=== PATIENT | male | born 1970 | race Caucasian/White ===

== ENCOUNTER 2017-03-15 19:58 | Emergency (ER) | payer OTHER ==
[2017-03-15] MEDS ORDERED: RX INFO: IV CONTRAST WAS GIVEN 1 EACH MISC MISCELLANE PRN (20:43)
[2017-03-15] MEDS ORDERED: SODIUM CHLORIDE 0.9% 1,000 ML IV STA (20:43)
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
[2017-03-15 21:35] LABS: Basophils # (A) 0.1 k/uL (0-0.2); Basophils % (A) 1 %; CH 34.1; CHCM 34.5; Eosinophils # (A) 0.3 k/uL (0-0.7); Eosinophils % (A) 4 %; HCT 46.5 % (39.0-53.0); HDW 2.52; HGB 15.6 gm/dL (13.0-17.5); Luc # (Auto) 0.16; Luc % (Auto) 2; Lymphocytes # (A) 2.9 k/uL (1.0-4.8); Lymphocytes % (A) 31 %; MCH 33.3 pg (25.0-35.0); MCHC 33.6 g/dL (31.0-37.0); MCV 99.2 fL (80.0-100.0); Mean Platelet Volume 7.7; Monocytes # (A) 0.3 k/uL (0-1.0); Monocytes % (A) 3 %; Neutrophils # (A) 5.8 k/uL (1.3-7.7); Neutrophils % (A) 60 %; RBC 4.69 m/uL (4.30-5.90); RDW 13.8 % (11.5-15.5); WBC 9.6 k/uL (3.8-10.6); WBC (Perox) 9.66
[2017-03-15 21:43] LABS: INR 1.1 (<1.2); Partial Thromboplastin Time 25.5 sec (22.0-30.0)
[2017-03-15 21:52] LABS: ALT 47 U/L (21-72); AST 29 U/L (17-59); Alkaline Phosphatase 56 U/L (38-126); Anion Gap 6 mmol/L; Blood Urea Nitrogen 21 mg/dL (9-20); Calcium 8.9 mg/dL (8.4-10.2); Carbon Dioxide 24 mmol/L (22-30); Chloride 107 mmol/L (98-107); Glucose 102 mg/dL (74-99); Non-African American GFR(MDRD) >60 (>60 ml/min/1.73 sqM); Potassium 4.3 mmol/L (3.5-5.1); Sodium 137 mmol/L (137-145); Total Bilirubin 0.2 mg/dL (0.2-1.3); Total Protein 6.2 g/dL (6.3-8.2)
[2017-03-15 22:11] LABS: Appearance,Urine Clear (Clear); Bilirubin,Urine Negative (Negative); Glucose,Urine (UA) Negative (Negative); Ketones,Urine Negative (Negative); Leukocyte Esterase,Urine Negative (Negative); Nitrite,Urine Negative (Negative); Protein,Urine Negative (Negative); Specific Gravity,Urine 1.024 (1.001-1.035); UA Billing (MACRO vs. MICRO) CHEM; Urobilinogen,Urine <2.0 mg/dL (<2.0)
[2017-03-15 22:21] VITALS: PULSE 70; RESP 16
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
[2017-03-15 23:05] VITALS: BP 125/58; TEMP 97.9
== END 2017-03-15 23:04 | disposition home or self-care (01) ==
LOC: EC 19:58
DX: S06.0X0A Concussion without loss of consciousness, initial encounter (principal); M25.511 Pain in right shoulder; M54.2 Cervicalgia; F31.9 Bipolar disorder, unspecified; F17.200 Nicotine dependence, unspecified, uncomplicated; Z79.899 Other long term (current) drug therapy; Z88.5 Allergy status to narcotic agent; V43.62XA Car passenger injured in collision with other type car in traffic accident, initial encounter
CPT/HCPCS: 36415; 80053; 85025; 85610; 85730; 81003; 72125; 70450; 71260; 74177; 99284; 96360; 96361; Q9967

== ENCOUNTER 2017-04-13 07:23 | Emergency (ER) | payer OTHER ==
[2017-04-13 07:28] VITALS: RESP 18; TEMP 98.2
[2017-04-13] MEDS ORDERED: SODIUM CHLORIDE 0.9% 1,000 ML IV STA (07:58)
[2017-04-13] MEDS ORDERED: ONDANSETRON 4 MG/2 ML VIAL IVP STA (07:58)
--- NOTE | 2017-04-13 08:22 | ED ---
General Adult HPI - General Chief complaint: Back Pain/Injury Stated complaint: vomiting, pop in back Time Seen by Provider: 04/13/17 07:51 Source: patient, RN notes reviewed Mode of arrival: ambulatory Limitations: no limitations - History of Present Illness Initial comments: 46 yo male presents for evaluation of nausea and vomiting. Patient 4 episodes of vomiting this morning. He did eat a hot dog which was left over from yesterday. He believes his symptoms are related to this. He also had one episode of diarrhea. One episode of vomiting felt a pop in his back, had pain in his back radiating to his right leg. Patient does have known history of sciatica and states this is typical pain for him. No difficulty with ambulation. Normal bowel or bladder symptoms. Pain is mostly resolved at the time my evaluation. Patient denies fever or chills. Denies chest pain or shortness of breath. - Related Data Home Medications Medication Instructions Recorded Confirmed Albuterol Inhaler [Ventolin Hfa 2 puff INHALATION RT-Q6H PRN 06/16/16 04/13/17 Inhaler] Ibuprofen [Motrin] 800 mg PO TID PRN 03/15/17 04/13/17 Lisinopril [Zestril] 20 mg PO DAILY 03/15/17 04/13/17 Sertraline [Zoloft] 50 mg PO HS 03/15/17 04/13/17 Allergies Allergy/AdvReac Type Severity Reaction Status Date / Time morphine Allergy Anaphylaxis Verified 04/13/17 07:41 Review of Systems ROS Statement: Those systems with pertinent positive or pertinent negative responses have been documented in the HPI. ROS Other: All systems not noted in ROS Statement are negative. Past Medical History Past Medical History: Asthma, Hypertension, Mitral Valve Prolapse (MVP) Additional Past Medical History / Comment(s): migraines, back pain History of Any Multi-Drug Resistant Organisms: None Reported Past Surgical History: Appendectomy, Tonsillectomy Past Psychological History: Bipolar, Depression Smoking Status: Current every day smoker Past Alcohol Use History: None Reported Past Drug Use History: None Reported - Past Family History Mother Family Medical History: Diabetes Mellitus General Exam Limitations: no limitations General appearance: alert, in no apparent distress Head exam: Present: atraumatic, normocephalic Eye exam: Present: normal appearance, PERRL ENT exam: Present: normal exam, mucous membranes dry Neck exam: Present: normal inspection. Absent: tenderness, meningismus Respiratory exam: Present: normal lung sounds bilaterally. Absent: respiratory distress Cardiovascular Exam: Present: regular rate, normal rhythm GI/Abdominal exam: Present: soft. Absent: distended, tenderness, guarding Extremities exam: Present: normal inspection, full ROM, normal capillary refill. Absent: tenderness, pedal edema Back exam: Present: normal inspection, full ROM Neurological exam: Present: alert, oriented X3, CN II-XII intact. Absent: motor sensory deficit Psychiatric exam: Present: normal affect, normal mood Skin exam: Present: warm, dry, intact. Absent: cyanosis, diaphoretic Course Vital Signs 04/13/17 07:26 Temperature 98.2 F Pulse Rate 75 Respiratory 18 Rate Blood Pressure 132/75 O2 Sat by Pulse 100 Oximetry - Reevaluation(s) Reevaluation #1: 04/13/17 09:12 On reevaluation the patient is feeling better, no nausea vomiting while in the emergency department Medical Decision Making - Medical Decision Making 46 yo male presenting with 4 episodes of nausea and vomiting as well as one episode of diarrhea, patient's symptoms began after eating a day-old hotdog. Patient did have some back pain, however this was typical of his sciatica. Pain radiated down the right leg. Patient has no focal neurological findings. Abdomen soft nontender nondistended. He appears well-hydrated on examination. Strength in the lower extremities is 5 out 5 bilaterally, no saddle anesthesia, normal gait. Laboratory studies including CBC and CMP are unremarkable, normal electrolyte. X-ray of the abdomen is negative for obstruction or free air. On reevaluation patient is feeling better. No vomiting while in the emergency department. Diagnosis: Nausea vomiting diarrhea - Lab Data Result diagrams: 04/13/17 08:30 04/13/17 08:30 Lab Results 04/13/17 04/13/17 Range/Units 08:30 08:30 WBC 8.5 (3.8-10.6) k/uL RBC 4.97 (4.30-5.90) m/uL Hgb 16.3 (13.0-17.5) gm/dL Hct 47.0 (39.0-53.0) % MCV 94.6 (80.0-100.0) fL MCH 32.7 (25.0-35.0) pg MCHC 34.6 (31.0-37.0) g/dL RDW 13.6 (11.5-15.5) % Plt Count 281 (150-450) k/uL Neutrophils % 64 % Lymphocytes % 25 % Monocytes % 6 % Eosinophils % 3 % Basophils % 0 % Neutrophils # 5.5 (1.3-7.7) k/uL Lymphocytes # 2.1 (1.0-4.8) k/uL Monocytes # 0.5 (0-1.0) k/uL Eosinophils # 0.2 (0-0.7) k/uL Basophils # 0.0 (0-0.2) k/uL Sodium 141 (137-145) mmol/L Potassium 3.8 (3.5-5.1) mmol/L Chloride 107 (98-107) mmol/L Carbon Dioxide 26 (22-30) mmol/L Anion Gap 8 mmol/L BUN 19 (9-20) mg/dL Creatinine 0.87 (0.66-1.25) mg/dL Est GFR (MDRD) Af Amer >60 (>60 ml/min/1.73 sqM) Est GFR (MDRD) Non-Af >60 (>60 ml/min/1.73 sqM) Glucose 100 H (74-99) mg/dL Calcium 9.2 (8.4-10.2) mg/dL Total Bilirubin 0.5 (0.2-1.3) mg/dL AST 31 (17-59) U/L ALT 38 (21-72) U/L Alkaline Phosphatase 50 (38-126) U/L Total Protein 6.2 L (6.3-8.2) g/dL Albumin 3.8 (3.5-5.0) g/dL Amylase 44 (30-110) U/L Lipase 113 (23-300) U/L Disposition Clinical Impression: Nausea vomiting and diarrhea Disposition: HOME SELF-CARE Condition: Good Instructions: Chronic Back Pain (ED), Acute Nausea and Vomiting (ED) Referrals: Fartun Garrido MD [Primary Care Provider] - 1-2 days Time of Disposition: 09:14
--- NOTE | 2017-04-13 08:31 | XR ---
EXAMINATION TYPE: XR KUB DATE OF EXAM: 04/13/2017 COMPARISON: NONE HISTORY: Pain TECHNIQUE: Single supine KUB image of the abdomen is obtained FINDINGS: Small bowel demonstrates no evidence for dilatation or air fluid levels. Gas and fecal material is seen in non-distended colon. No convincing evidence for pneumoperitoneum. No unusual calcifications. The lung bases are clear. The osseous structures are intact. IMPRESSION: 1. Overall nonobstructive bowel gas pattern.
[2017-04-13 08:53] LABS: Basophils % (A) 0 %; CH 34.1; CHCM 36.2; Eosinophils # (A) 0.2 k/uL (0-0.7); Eosinophils % (A) 3 %; HDW 2.51; HGB 16.3 gm/dL (13.0-17.5); Luc # (Auto) 0.18; Luc % (Auto) 2; Lymphocytes # (A) 2.1 k/uL (1.0-4.8); Lymphocytes % (A) 25 %; MCH 32.7 pg (25.0-35.0); MCHC 34.6 g/dL (31.0-37.0); MCV 94.6 fL (80.0-100.0); Mean Platelet Volume 7.5; Monocytes # (A) 0.5 k/uL (0-1.0); Monocytes % (A) 6 %; Neutrophils # (A) 5.5 k/uL (1.3-7.7); Neutrophils % (A) 64 %; RBC 4.97 m/uL (4.30-5.90); RDW 13.6 % (11.5-15.5); WBC 8.5 k/uL (3.8-10.6); WBC (Perox) 8.43
[2017-04-13 09:01] LABS: ALT 38 U/L (21-72); AST 31 U/L (17-59); Alkaline Phosphatase 50 U/L (38-126); Amylase 44 U/L (30-110); Anion Gap 8 mmol/L; Blood Urea Nitrogen 19 mg/dL (9-20); Calcium 9.2 mg/dL (8.4-10.2); Carbon Dioxide 26 mmol/L (22-30); Chloride 107 mmol/L (98-107); Glucose 100 mg/dL (74-99); Non-African American GFR(MDRD) >60 (>60 ml/min/1.73 sqM); Potassium 3.8 mmol/L (3.5-5.1); Sodium 141 mmol/L (137-145); Total Bilirubin 0.5 mg/dL (0.2-1.3); Total Protein 6.2 g/dL (6.3-8.2)
[2017-04-13 09:48] VITALS: BP 133/79; PULSE 79
== END 2017-04-13 09:28 | disposition home or self-care (01) ==
LOC: EC 07:23
DX: R11.2 Nausea with vomiting, unspecified (principal); R19.7 Diarrhea, unspecified; M54.9 Dorsalgia, unspecified; I10 Essential (primary) hypertension; M54.30 Sciatica, unspecified side; F32.9 Major depressive disorder, single episode, unspecified; F17.200 Nicotine dependence, unspecified, uncomplicated; Z79.899 Other long term (current) drug therapy; Z88.5 Allergy status to narcotic agent
CPT/HCPCS: 36415; 80053; 82150; 83690; 85025; 74000; 99283; 96374; 96361; J2405

== ENCOUNTER 2017-04-16 10:57 | Emergency (ER) | payer OTHER ==
[2017-04-16] MEDS ORDERED: SODIUM CHLORIDE 0.9% 1,000 ML IV STA ×2 (11:13→12:47)
--- NOTE | 2017-04-16 11:17 | ED ---
General Adult HPI - General Chief complaint: Syncope Stated complaint: syncope Time Seen by Provider: 04/16/17 11:07 Source: patient, RN notes reviewed Mode of arrival: wheelchair Limitations: no limitations - History of Present Illness Initial comments: Patient is a pleasant 46-year-old male presenting to the emergency department following syncopal episode. Episode occurred just prior to arrival. Patient states he was walking down the road when he suddenly felt tingly and then when out. Patient remembers somebody waking him up. Patient believes she had the side of his head. Patient has only mild discomfort on the left side of his head with touch. No neck or back pain. No chest pain or dyspnea. No abdominal pain. No history of similar symptoms previously. Patient did do a line of cocaine last night because his brother came over to visit. Patient states he does not normally do a lot of cocaine. Patient denies any confusion or weakness. - Related Data Home Medications Medication Instructions Recorded Confirmed Albuterol Inhaler [Ventolin Hfa 2 puff INHALATION RT-Q6H PRN 06/16/16 04/16/17 Inhaler] Ibuprofen [Motrin] 800 mg PO TID PRN 03/15/17 04/16/17 Lisinopril [Zestril] 20 mg PO DAILY 03/15/17 04/16/17 Sertraline [Zoloft] 50 mg PO HS 03/15/17 04/16/17 Atenolol [Tenormin] 25 mg PO DAILY 04/16/17 04/16/17 oxyCODONE-APAP 10-325MG [Percocet 1 tab PO TID PRN 04/16/17 04/16/17 10-325 mg] Previous Rx's Medication Instructions Recorded Amoxicillin 500 mg PO Q8H #30 capsule 04/16/17 Allergies Allergy/AdvReac Type Severity Reaction Status Date / Time morphine Allergy Anaphylaxis Verified 04/16/17 12:34 Review of Systems ROS Statement: Those systems with pertinent positive or pertinent negative responses have been documented in the HPI. ROS Other: All systems not noted in ROS Statement are negative. Constitutional: Denies: fever Eyes: Denies: eye pain ENT: Denies: ear pain Respiratory: Denies: cough, dyspnea Cardiovascular: Denies: chest pain, palpitations Endocrine: Denies: fatigue Gastrointestinal: Denies: abdominal pain Genitourinary: Denies: dysuria Musculoskeletal: Denies: back pain Skin: Denies: rash Neurological: Denies: weakness, numbness, paresthesias, confusion, abnormal gait , vertigo Past Medical History Past Medical History: Asthma, Hypertension, Mitral Valve Prolapse (MVP) Additional Past Medical History / Comment(s): migraines, back pain History of Any Multi-Drug Resistant Organisms: None Reported Past Surgical History: Appendectomy, Tonsillectomy Past Psychological History: Bipolar, Depression Smoking Status: Current every day smoker Past Alcohol Use History: Occasional Past Drug Use History: Cocaine - Past Family History Mother Family Medical History: Diabetes Mellitus General Exam Limitations: no limitations General appearance: alert, in no apparent distress Head exam: Present: normocephalic, other (Tenderness left parietal region to palpation. No significant swelling.) Eye exam: Present: normal appearance, PERRL, EOMI. Absent: nystagmus ENT exam: Present: normal oropharynx Neck exam: Present: normal inspection. Absent: tenderness Respiratory exam: Present: normal lung sounds bilaterally Cardiovascular Exam: Present: regular rate, normal rhythm Expanded Peripheral pulses: 2+: Radial (R), Radial (L), Dorsalis Pedis (R), Dorsalis Pedis (L) GI/Abdominal exam: Present: soft. Absent: tenderness Extremities exam: Present: normal inspection, full ROM. Absent: tenderness, pedal edema, calf tenderness Neurological exam: Present: alert, oriented X3, CN II-XII intact. Absent: motor sensory deficit Expanded Patient oriented to: Present: person, place, time Speech: Present: fluid speech Cranial nerves: EOM's Intact: Normal, Facial Sensation: Normal Sensory exam: Upper Extremity Light Touch: Normal, Lower Extremity Light Touch: Normal Motor strength exam: RUE: 5, LUE: 5, RLE: 5, LLE: 5 Eye Response: (4) open spontaneously Motor Response: (6) obeys commands Verbal Response: (5) oriented Psychiatric exam: Present: normal affect, normal mood Skin exam: Present: normal color Course Vital Signs 04/16/17 04/16/17 04/16/17 11:01 12:51 13:12 Temperature 96.9 F L Pulse Rate 89 70 62 Respiratory 18 16 18 Rate Blood Pressure 99/55 121/66 119/69 O2 Sat by Pulse 99 98 98 Oximetry - Reevaluation(s) Reevaluation #1: 04/16/17 11:15 Patient counseled to discontinue cocaine use. EKG Findings - EKG Comments: EKG Findings:: Sinus rhythm at 71. Short DE 108. QRS 90. QT 378. QTC 410. Normal axis. Right atrial enlargement. No acute ST change. Medical Decision Making - Medical Decision Making Patient reevaluated and resting comfortably in bed. Patient updated on results and need for close follow-up. did show up demanding to know results on drug screen. This information was not provided directly to her for patient confidentiality. Patient does admit to having sinus problems and will be prescribed antibiotics. - Lab Data Result diagrams: 04/16/17 11:18 04/16/17 11:18 Lab Results 04/16/17 04/16/17 04/16/17 Range/Units 11:16 11:18 11:18 WBC 19.5 H (3.8-10.6) k/uL RBC 5.42 (4.30-5.90) m/uL Hgb 18.3 H (13.0-17.5) gm/dL Hct 51.7 (39.0-53.0) % MCV 95.5 (80.0-100.0) fL MCH 33.8 (25.0-35.0) pg MCHC 35.3 (31.0-37.0) g/dL RDW 12.4 (11.5-15.5) % Plt Count 331 (150-450) k/uL Neutrophils % 79 % Lymphocytes % 14 % Monocytes % 4 % Eosinophils % 1 % Basophils % 0 % Neutrophils # 15.5 H (1.3-7.7) k/uL Lymphocytes # 2.7 (1.0-4.8) k/uL Monocytes # 0.9 (0-1.0) k/uL Eosinophils # 0.3 (0-0.7) k/uL Basophils # 0.1 (0-0.2) k/uL PT (9.0-12.0) sec INR (<1.2) APTT (22.0-30.0) sec D-Dimer (<0.60) mg/L FEU Sodium (137-145) mmol/L Potassium (3.5-5.1) mmol/L Chloride (98-107) mmol/L Carbon Dioxide (22-30) mmol/L Anion Gap mmol/L BUN (9-20) mg/dL Creatinine (0.66-1.25) mg/dL Est GFR (MDRD) Af Amer (>60 ml/min/1.73 sqM) Est GFR (MDRD) Non-Af (>60 ml/min/1.73 sqM) Glucose (74-99) mg/dL POC Glucose (mg/dL) 97 (75-99) mg/dL POC Glu Manager Of Radiology ID Haleigh Leonard Calcium (8.4-10.2) mg/dL Magnesium (1.6-2.3) mg/dL Total Bilirubin (0.2-1.3) mg/dL AST (17-59) U/L ALT (21-72) U/L Alkaline Phosphatase (38-126) U/L Total Creatine Kinase 216 H (55-170) U/L CK-MB (CK-2) 3.8 H* (0.0-2.4) ng/mL CK-MB (CK-2) Rel Index 1.8 Troponin I <0.012 (0.000-0.034) ng/mL Total Protein (6.3-8.2) g/dL Albumin (3.5-5.0) g/dL Urine Color Urine Appearance (Clear) Urine pH (5.0-8.0) Ur Specific Laughlin (1.001-1.035) Urine Protein (Negative) Urine Glucose (UA) (Negative) Urine Ketones (Negative) Urine Blood (Negative) Urine Nitrite (Negative) Urine Bilirubin (Negative) Urine Urobilinogen (<2.0) mg/dL Ur Leukocyte Esterase (Negative) Urine RBC (0-5) /hpf Urine WBC (0-5) /hpf Ur Squamous Epith Cells (0-4) /hpf Hyaline Casts (0-2) /lpf Granular Casts (0) /lpf Urine Mucus (None) /hpf Urine Opiates Screen (NotDetected) Ur Oxycodone Screen (NotDetected) Urine Methadone Screen (NotDetected) Ur Propoxyphene Screen (NotDetected) Ur Barbiturates Screen (NotDetected) U Tricyclic Antidepress (NotDetected) Ur Phencyclidine Scrn (NotDetected) Ur Amphetamines Screen (NotDetected) U Methamphetamines Scrn (NotDetected) U Benzodiazepines Scrn (NotDetected) Urine Cocaine Screen (NotDetected) U Marijuana (THC) Screen (NotDetected) 04/16/17 04/16/17 04/16/17 Range/Units 11:18 11:18 12:48 WBC (3.8-10.6) k/uL RBC (4.30-5.90) m/uL Hgb (13.0-17.5) gm/dL Hct (39.0-53.0) % MCV (80.0-100.0) fL MCH (25.0-35.0) pg MCHC (31.0-37.0) g/dL RDW (11.5-15.5) % Plt Count (150-450) k/uL Neutrophils % % Lymphocytes % % Monocytes % % Eosinophils % % Basophils % % Neutrophils # (1.3-7.7) k/uL Lymphocytes # (1.0-4.8) k/uL Monocytes # (0-1.0) k/uL Eosinophils # (0-0.7) k/uL Basophils # (0-0.2) k/uL PT 10.9 (9.0-12.0) sec INR 1.1 (<1.2) APTT 24.6 (22.0-30.0) sec D-Dimer 1.36 H (<0.60) mg/L FEU Sodium 140 (137-145) mmol/L Potassium 4.9 (3.5-5.1) mmol/L Chloride 110 H (98-107) mmol/L Carbon Dioxide 20 L (22-30) mmol/L Anion Gap 10 mmol/L BUN 20 (9-20) mg/dL Creatinine 1.50 H (0.66-1.25) mg/dL Est GFR (MDRD) Af Amer >60 (>60 ml/min/1.73 sqM) Est GFR (MDRD) Non-Af 50 (>60 ml/min/1.73 sqM) Glucose 86 (74-99) mg/dL POC Glucose (mg/dL) (75-99) mg/dL POC Glu Manager Of Radiology ID Calcium 10.1 (8.4-10.2) mg/dL Magnesium 1.9 (1.6-2.3) mg/dL Total Bilirubin 1.1 (0.2-1.3) mg/dL AST 42 (17-59) U/L ALT 44 (21-72) U/L Alkaline Phosphatase 67 (38-126) U/L Total Creatine Kinase (55-170) U/L CK-MB (CK-2) (0.0-2.4) ng/mL CK-MB (CK-2) Rel Index Troponin I (0.000-0.034) ng/mL Total Protein 7.4 (6.3-8.2) g/dL Albumin 4.5 (3.5-5.0) g/dL Urine Color Yellow Urine Appearance Clear (Clear) Urine pH 5.5 (5.0-8.0) Ur Specific Laughlin 1.023 (1.001-1.035) Urine Protein 1+ H (Negative) Urine Glucose (UA) Negative (Negative) Urine Ketones 1+ H (Negative) Urine Blood Negative (Negative) Urine Nitrite Negative (Negative) Urine Bilirubin Negative (Negative) Urine Urobilinogen <2.0 (<2.0) mg/dL Ur Leukocyte Esterase Negative (Negative) Urine RBC 1 (0-5) /hpf Urine WBC 4 (0-5) /hpf Ur Squamous Epith Cells <1 (0-4) /hpf Hyaline Casts 40 H (0-2) /lpf Granular Casts 13 (0) /lpf Urine Mucus Occasional H (None) /hpf Urine Opiates Screen Not Detected (NotDetected) Ur Oxycodone Screen Not Detected (NotDetected) Urine Methadone Screen Not Detected (NotDetected) Ur Propoxyphene Screen Not Detected (NotDetected) Ur Barbiturates Screen Not Detected (NotDetected) U Tricyclic Antidepress Not Detected (NotDetected) Ur Phencyclidine Scrn Not Detected (NotDetected) Ur Amphetamines Screen Not Detected (NotDetected) U Methamphetamines Scrn Not Detected (NotDetected) U Benzodiazepines Scrn Not Detected (NotDetected) Urine Cocaine Screen Detected H (NotDetected) U Marijuana (THC) Screen Not Detected (NotDetected) - Radiology Data Radiology results: report reviewed (Computed tomography scan of the chest negative for pulmonary embolism.), image reviewed (Chest x-ray shows no acute process. Computed tomography scan of the brain shows no acute process. Sinusitis.) Disposition Clinical Impression: Syncope, Sinusitis Disposition: HOME SELF-CARE Condition: Stable Instructions: Syncope (ED), Sinusitis (ED) Additional Instructions: Please follow-up with primary care physician in the next day or 2 for recheck. Avoid use of any illegal substances. Saline nasal spray as needed. Return for chest pain, difficulty breathing, headache, confusion, worsening symptoms, weakness, or other concerns. Prescriptions: Amoxicillin 500 mg PO Q8H #30 capsule Referrals: Fartun Garrido MD [Primary Care Provider] - 1-2 days Time of Disposition: 14:11
[2017-04-16 11:34] LABS: Basophils # (A) 0.1 k/uL (0-0.2); Basophils % (A) 0 %; CH 33.1; CHCM 34.8; Eosinophils # (A) 0.3 k/uL (0-0.7); Eosinophils % (A) 1 %; HCT 51.7 % (39.0-53.0); HGB 18.3 gm/dL (13.0-17.5); Luc # (Auto) 0.19; Luc % (Auto) 1; Lymphocytes # (A) 2.7 k/uL (1.0-4.8); Lymphocytes % (A) 14 %; MCH 33.8 pg (25.0-35.0); MCHC 35.3 g/dL (31.0-37.0); MCV 95.5 fL (80.0-100.0); Mean Platelet Volume 7.2; Monocytes # (A) 0.9 k/uL (0-1.0); Monocytes % (A) 4 %; Neutrophils # (A) 15.5 k/uL (1.3-7.7); Neutrophils % (A) 79 %; RBC 5.42 m/uL (4.30-5.90); RDW 12.4 % (11.5-15.5); WBC 19.5 k/uL (3.8-10.6); WBC (Perox) 19.88
[2017-04-16 11:46] LABS: ALT 44 U/L (21-72); AST 42 U/L (17-59); Alkaline Phosphatase 67 U/L (38-126); Anion Gap 10 mmol/L; Blood Urea Nitrogen 20 mg/dL (9-20); Calcium 10.1 mg/dL (8.4-10.2); Carbon Dioxide 20 mmol/L (22-30); Chloride 110 mmol/L (98-107); Glucose 86 mg/dL (74-99); Magnesium 1.9 mg/dL (1.6-2.3); Non-African American GFR(MDRD) 50 (>60 ml/min/1.73 sqM); Potassium 4.9 mmol/L (3.5-5.1); Sodium 140 mmol/L (137-145); Total Bilirubin 1.1 mg/dL (0.2-1.3); Total Protein 7.4 g/dL (6.3-8.2)
[2017-04-16 11:46] LABS: Glucose,Whole Blood 97 mg/dL (75-99)
--- NOTE | 2017-04-16 11:50 | CT ---
EXAMINATION TYPE: CT brain wo con DATE OF EXAM: 04/16/2017 COMPARISON: Previous study dated 03/15/2017 HISTORY: Syncope CT DLP: 963.6 mGycm Automated exposure control for dose reduction was used. FINDINGS: Central structures are midline. There is no evidence of hydrocephalus. No acute focal lesion, mass ef fect or midline shift is seen. I do not see evidence of intracranial blood. There is an air-fluid level in the left maxillary sinus. IMPRESSION: 1. NO ACUTE INTRACRANIAL ABNORMALITY. 2. ACUTE, LEFT MAXILLARY SINUSITIS.
[2017-04-16 11:58] LABS: Creatine Kinase 216 U/L (55-170); INR 1.1 (<1.2); Partial Thromboplastin Time 24.6 sec (22.0-30.0); Prothrombin Time 10.9 sec (9.0-12.0)
[2017-04-16 12:10] LABS: Troponin I <0.012 ng/mL (0.000-0.034)
[2017-04-16 12:24] LABS: Creatine Kinase MB 3.8 ng/mL (0.0-2.4)
--- NOTE | 2017-04-16 12:41 | XR ---
EXAMINATION TYPE: XR chest 2V DATE OF EXAM ORDERED: 04/16/2017 HISTORY: syncope. REFERENCE: Previous study dated 06/16/2016. FINDINGS: The lungs are clear. Pleural spaces are clear. Heart size is normal. IMPRESSION: NORMAL CHEST.
[2017-04-16] MEDS ORDERED: RX INFO: IV CONTRAST WAS GIVEN 1 EACH MISC MISCELLANE PRN (12:47)
[2017-04-16 13:18] LABS: Appearance,Urine Clear (Clear); Bilirubin,Urine Negative (Negative); Glucose,Urine (UA) Negative (Negative); Granular Casts,Urine 13 /lpf (0); Ketones,Urine 1+ (Negative); Leukocyte Esterase,Urine Negative (Negative); Mucus,Urine Occasional /hpf; Nitrite,Urine Negative (Negative); PH, Urine 5.5 (5.0-8.0); Particle Count 3742; Protein,Urine 1+ (Negative); RBC,Urine 1 /hpf (0-5); Specific Gravity,Urine 1.023 (1.001-1.035); Squamous Epithelial Cell,Urine <1 /hpf (0-4); UA Billing (MACRO vs. MICRO) MICRO; Urobilinogen,Urine <2.0 mg/dL (<2.0); WBC,Urine 4 /hpf (0-5)
--- NOTE | 2017-04-16 13:57 | CT ---
EXAMINATION TYPE: CT angio chest DATE OF EXAM: 04/16/2017 1:35 PM COMPARISON: Previous study dated 03/15/2017 HISTORY: Syncope, elevated d-dimer CT DLP: 158.3 mGycm Automated exposure control for dose reduction was used. CONTRAST: CTA scan of the thorax is performed with IV Contrast, patient injected with 80 mL of Visipaque 320, p ulmonary embolism protocol. . FINDINGS: There is minimal dependent atelectasis in the dependent portions of the lungs. No parenchym al lesions are seen. There is no significant axillary, mediastinal or hilar adenopathy. There is no evidence of pulmonary embolus. The aorta is normal in caliber. There is no pleural or pericardial fluid. The heart is not enlarged. Visualized portions of the upper abdomen are unremarkable. No bony destructive lesion is seen. IMPRESSION: THIS EXAMINATION IS NEGATIVE FOR PULMONARY EMBOLUS.
[2017-04-16 14:41] VITALS: BP 118/79; PULSE 74; RESP 17; TEMP 97.7
== END 2017-04-16 14:50 | disposition home or self-care (01) ==
LOC: EC 10:57
DX: J01.00 Acute maxillary sinusitis, unspecified (principal); R55 Syncope and collapse; I10 Essential (primary) hypertension; F32.9 Major depressive disorder, single episode, unspecified; F17.200 Nicotine dependence, unspecified, uncomplicated; Z88.5 Allergy status to narcotic agent; Z79.899 Other long term (current) drug therapy
CPT/HCPCS: 99284; 96360; 96361 ×2; 36415; 93005; 85379; 80053; 82550; 82553; 83735; 84484; 85025; 85610; 85730; 81001; 80306; 71020; 70450; 71275; Q9967

== ENCOUNTER 2017-04-29 10:35 | Observation (INO) | payer OTHER ==
[2017-04-29] MEDS ORDERED: ASPIRIN 81 MG PO STA (10:49)
[2017-04-29] MEDS ORDERED: NITROGLYCERIN OINT 1 INCH/GM PACKET TOPICAL STA (10:49)
--- NOTE | 2017-04-29 10:52 | ED ---
General Adult HPI - General Chief complaint: Chest Pain Stated complaint: Chest Pain Time Seen by Provider: 04/29/17 10:35 Source: patient, EMS, RN notes reviewed Mode of arrival: EMS Limitations: no limitations - History of Present Illness Initial comments: This is a 46-year-old male who presents emergency Department with a past medical history significant for high blood pressure and a long-standing smoking history. Patient also states he has a positive family history for heart disease. Patient denies any recent fever or chills. Patient states he does cough up sputum on a regular basis. Patient states this is ongoing for quite a while. Patient also states he does cocaine. Patient denies any abdominal pain. Patient does state when he had the chest pain earlier it was a pressure sensation and it radiated straight to his back. Patient states she was sweating at the time and he was nauseated. Patient denies any lightheadedness or dizziness. But he does state that a few weeks ago he did pass out on a rough when he was straining himself while alex. Patient states she was seen at the Hospital at that time. - Related Data Home Medications Medication Instructions Recorded Confirmed Albuterol Inhaler [Ventolin Hfa 2 puff INHALATION RT-Q6H PRN 06/16/16 04/29/17 Inhaler] Ibuprofen [Motrin] 800 mg PO TID PRN 03/15/17 04/29/17 Lisinopril [Zestril] 20 mg PO DAILY 03/15/17 04/29/17 Sertraline [Zoloft] 50 mg PO HS 03/15/17 04/29/17 Atenolol [Tenormin] 25 mg PO DAILY 04/16/17 04/29/17 oxyCODONE-APAP 10-325MG [Percocet 1 tab PO TID PRN 04/16/17 04/29/17 10-325 mg] Allergies Allergy/AdvReac Type Severity Reaction Status Date / Time morphine Allergy Anaphylaxis Verified 04/29/17 10:51 Review of Systems ROS Statement: Those systems with pertinent positive or pertinent negative responses have been documented in the HPI. ROS Other: All systems not noted in ROS Statement are negative. Past Medical History Past Medical History: Asthma, Hypertension, Mitral Valve Prolapse (MVP) Additional Past Medical History / Comment(s): migraines, back pain History of Any Multi-Drug Resistant Organisms: None Reported Past Surgical History: Appendectomy, Tonsillectomy Past Psychological History: Bipolar, Depression Smoking Status: Current every day smoker Past Alcohol Use History: Occasional Past Drug Use History: Cocaine - Past Family History Mother Family Medical History: Diabetes Mellitus General Exam - General Exam Comments Initial Comments: GENERAL: Patient is well-developed and well-nourished. Patient is nontoxic and well- hydrated and is in no acute distress. ENT: Neck is soft and supple. No significant lymphadenopathy is noted. Oropharynx is clear. Moist mucous membranes. Neck has full range of motion without eliciting any pain. EYES: The sclera were anicteric and conjunctiva were pink and moist. Extraocular movements were intact and pupils were equal round and reactive to light. Eyelids were unremarkable. PULMONARY: Unlabored respirations. Good breath sounds bilaterally. Diminished breath sounds CARDIOVASCULAR: There is a regular rate and rhythm without any murmurs gallops or rubs. ABDOMEN: Soft and nontender with normal bowel sounds. No palpable organomegaly was noted. There is no palpable pulsatile mass. SKIN: Skin is clear with no lesions or rashes and otherwise unremarkable. NEUROLOGIC: Patient is alert and oriented x3. Cranial nerves II through XII are grossly intact. Motor and sensory are also intact. Normal speech, volume and content. Symmetrical smile. MUSCULOSKELETAL: Normal extremities with adequate strength and full range of motion. No lower extremity swelling or edema. No calf tenderness. LYMPHATICS: No significant lymphadenopathy is noted PSYCHIATRIC: Normal psychiatric evaluation. Normal interpersonal interactions appears functionally intact in deals appropriately with others. No signs of depression. No signs of anxiety. Limitations: no limitations Course Vital Signs 04/29/17 04/29/17 04/29/17 10:36 11:42 12:48 Temperature 97.1 F L Pulse Rate 82 65 73 Respiratory 18 18 18 Rate Blood Pressure 130/56 103/61 103/60 O2 Sat by Pulse 97 98 98 Oximetry Medical Decision Making - Medical Decision Making EKG shows sinus rhythm at 81 bpm TX interval 210 QRS is 84 QT interval 376 QTC is 436. Patient's EKG shows no ST segment elevation or depression or T wave normalities are noted. Chest x-ray shows no acute abnormality. Patient was started on heparin because of the significant of symptoms. I spoke with Dr. Martinez he agreed to admit the patient admitted the patient I consult cardiology I kept the heparin Nitropaste and aspirin going on the floor. - Lab Data Result diagrams: 04/29/17 10:47 04/29/17 10:47 Lab Results 04/29/17 04/29/17 04/29/17 Range/Units 10:47 10:47 10:47 WBC 10.4 (3.8-10.6) k/uL RBC 4.77 (4.30-5.90) m/uL Hgb 15.8 (13.0-17.5) gm/dL Hct 46.0 (39.0-53.0) % MCV 96.5 (80.0-100.0) fL MCH 33.2 (25.0-35.0) pg MCHC 34.4 (31.0-37.0) g/dL RDW 12.4 (11.5-15.5) % Plt Count 285 (150-450) k/uL Neutrophils % 71 % Lymphocytes % 22 % Monocytes % 5 % Eosinophils % 1 % Basophils % 0 % Neutrophils # 7.4 (1.3-7.7) k/uL Lymphocytes # 2.3 (1.0-4.8) k/uL Monocytes # 0.5 (0-1.0) k/uL Eosinophils # 0.1 (0-0.7) k/uL Basophils # 0.0 (0-0.2) k/uL PT (9.0-12.0) sec INR (<1.2) APTT (22.0-30.0) sec Sodium 140 (137-145) mmol/L Potassium 4.0 (3.5-5.1) mmol/L Chloride 110 H (98-107) mmol/L Carbon Dioxide 19 L (22-30) mmol/L Anion Gap 11 mmol/L BUN 27 H (9-20) mg/dL Creatinine 0.86 (0.66-1.25) mg/dL Est GFR (MDRD) Af Amer >60 (>60 ml/min/1.73 sqM) Est GFR (MDRD) Non-Af >60 (>60 ml/min/1.73 sqM) Glucose 97 (74-99) mg/dL Calcium 9.1 (8.4-10.2) mg/dL Magnesium 2.0 (1.6-2.3) mg/dL Total Bilirubin 0.5 (0.2-1.3) mg/dL AST 35 (17-59) U/L ALT 43 (21-72) U/L Alkaline Phosphatase 60 (38-126) U/L Total Creatine Kinase 176 H (55-170) U/L CK-MB (CK-2) 2.2 (0.0-2.4) ng/mL CK-MB (CK-2) Rel Index 1.3 Troponin I <0.012 (0.000-0.034) ng/mL Total Protein 6.6 (6.3-8.2) g/dL Albumin 3.9 (3.5-5.0) g/dL 04/29/17 Range/Units 10:47 WBC (3.8-10.6) k/uL RBC (4.30-5.90) m/uL Hgb (13.0-17.5) gm/dL Hct (39.0-53.0) % MCV (80.0-100.0) fL MCH (25.0-35.0) pg MCHC (31.0-37.0) g/dL RDW (11.5-15.5) % Plt Count (150-450) k/uL Neutrophils % % Lymphocytes % % Monocytes % % Eosinophils % % Basophils % % Neutrophils # (1.3-7.7) k/uL Lymphocytes # (1.0-4.8) k/uL Monocytes # (0-1.0) k/uL Eosinophils # (0-0.7) k/uL Basophils # (0-0.2) k/uL PT 10.6 (9.0-12.0) sec INR 1.0 (<1.2) APTT 23.3 (22.0-30.0) sec Sodium (137-145) mmol/L Potassium (3.5-5.1) mmol/L Chloride (98-107) mmol/L Carbon Dioxide (22-30) mmol/L Anion Gap mmol/L BUN (9-20) mg/dL Creatinine (0.66-1.25) mg/dL Est GFR (MDRD) Af Amer (>60 ml/min/1.73 sqM) Est GFR (MDRD) Non-Af (>60 ml/min/1.73 sqM) Glucose (74-99) mg/dL Calcium (8.4-10.2) mg/dL Magnesium (1.6-2.3) mg/dL Total Bilirubin (0.2-1.3) mg/dL AST (17-59) U/L ALT (21-72) U/L Alkaline Phosphatase (38-126) U/L Total Creatine Kinase (55-170) U/L CK-MB (CK-2) (0.0-2.4) ng/mL CK-MB (CK-2) Rel Index Troponin I (0.000-0.034) ng/mL Total Protein (6.3-8.2) g/dL Albumin (3.5-5.0) g/dL Critical Care Time Critical Care Time: Yes Total Critical Care Time: 35 Disposition Clinical Impression: Unstable angina pectoris Disposition: ADMITTED IP TO THIS HOSP Referrals: Fartun Garrido MD [Primary Care Provider] - 1-2 days Time of Disposition: 12:55
[2017-04-29 11:08] LABS: Basophils % (A) 0 %; CH 33.4; CHCM 34.8; Eosinophils # (A) 0.1 k/uL (0-0.7); Eosinophils % (A) 1 %; HDW 2.44; HGB 15.8 gm/dL (13.0-17.5); Luc # (Auto) 0.14; Luc % (Auto) 1; Lymphocytes # (A) 2.3 k/uL (1.0-4.8); Lymphocytes % (A) 22 %; MCH 33.2 pg (25.0-35.0); MCHC 34.4 g/dL (31.0-37.0); MCV 96.5 fL (80.0-100.0); Mean Platelet Volume 6.9; Monocytes # (A) 0.5 k/uL (0-1.0); Monocytes % (A) 5 %; Neutrophils # (A) 7.4 k/uL (1.3-7.7); Neutrophils % (A) 71 %; RBC 4.77 m/uL (4.30-5.90); RDW 12.4 % (11.5-15.5); WBC 10.4 k/uL (3.8-10.6); WBC (Perox) 10.91
[2017-04-29 11:14] LABS: ALT 43 U/L (21-72); AST 35 U/L (17-59); Alkaline Phosphatase 60 U/L (38-126); Anion Gap 11 mmol/L; Blood Urea Nitrogen 27 mg/dL (9-20); Calcium 9.1 mg/dL (8.4-10.2); Carbon Dioxide 19 mmol/L (22-30); Chloride 110 mmol/L (98-107); Glucose 97 mg/dL (74-99); Non-African American GFR(MDRD) >60 (>60 ml/min/1.73 sqM); Sodium 140 mmol/L (137-145); Total Bilirubin 0.5 mg/dL (0.2-1.3); Total Protein 6.6 g/dL (6.3-8.2)
[2017-04-29 11:22] LABS: Partial Thromboplastin Time 23.3 sec (22.0-30.0); Prothrombin Time 10.6 sec (9.0-12.0)
--- NOTE | 2017-04-29 11:24 | XR ---
EXAMINATION TYPE: XR chest 2V DATE OF EXAM: 04/29/2017 CLINICAL HISTORY: Chest pain TECHNIQUE: Frontal and lateral views of the chest are obtained. COMPARISON: 04/16/2017 FINDINGS: There is no focal air space opacity, pleural effusion, or pneumothorax seen. The cardiac silhouette size is within normal limits. The osseous structures are intact. IMPRESSION: No acute cardiopulmonary process.
[2017-04-29 11:38] LABS: Creatine Kinase 176 U/L (55-170)
[2017-04-29 11:51] LABS: Creatine Kinase MB 2.2 ng/mL (0.0-2.4); Troponin I <0.012 ng/mL (0.000-0.034)
[2017-04-29] MEDS ORDERED: HEPARIN SODIUM,PORCINE 5,000 UNIT/ML 1 ML VIAL IV ONE (12:56)
[2017-04-29] MEDS ORDERED: NITROGLYCERIN SL TABS 0.4 MG TAB SUBLINGUAL PRN (12:56)
[2017-04-29] MEDS ORDERED: HEPARIN SODIUM,PORCINE/D5W PMX 25,000 UNIT in DEXTROSE/WATER 1 500ML.BAG IV SCH (13:00)
[2017-04-29] MEDS ORDERED: ALBUTEROL NEBULIZED 2.5 MG/3 ML INHALATION PRN (15:56)
[2017-04-29] MEDS ORDERED: IBUPROFEN 800 MG TAB PO PRN (15:56)
--- NOTE | 2017-04-29 16:25 | P.HPIM ---
History of Present Illness -year-old gentleman was admitted for chest pressure like sensation without any diaphoresis, nausea, vomiting he states he started having chest pain when he was working at his workplace. Patient admits to using cocaine although he sees it was 2 days ago it appears like patient has used cocaine just before coming to the hospital patient's chest pain is pressure-like sensation is unable to grade the chest pain radiating to the back patient still has his gallbladder denied any fever patient appears to have congestion from snorting cocaine patient denied any fever, chills, nausea, vomiting patient pain is nonpleuritic not associated discharge as of breath. EKG did not show any acute ST-T wave changes chest x-ray did not show any significant abnormality. Review of Systems REVIEW OF SYSTEMS: CONSTITUTIONAL: No fever, no malaise, no fatigue. HEENT: No recent visual problems or hearing problems. Denied any sore throat. CARDIOVASCULAR: No orthopnea, PND, no palpitations, no syncope. PULMONARY: No shortness of breath, no cough, no hemoptysis. GASTROINTESTINAL: No diarrhea, no nausea, no vomiting, no abdominal pain. Normoactive bowel sounds. NEUROLOGICAL: No headaches, no weakness, no numbness. HEMATOLOGICAL: Denies any bleeding or petechiae. GENITOURINARY: Denies any burning micturition, frequency, or urgency. MUSCULOSKELETAL/RHEUMATOLOGICAL: Denies any joint pain, swelling, or any muscle pain. ENDOCRINE: Denies any polyuria or polydipsia. The rest of the 14-point review of systems is negative. Past Medical History Past Medical History: Asthma, Hypertension, Mitral Valve Prolapse (MVP) Additional Past Medical History / Comment(s): migraines, back pain History of Any Multi-Drug Resistant Organisms: None Reported Past Surgical History: Appendectomy, Tonsillectomy Past Psychological History: Bipolar, Depression Smoking Status: Current every day smoker Past Alcohol Use History: Occasional Past Drug Use History: Cocaine - Past Family History Mother Family Medical History: Diabetes Mellitus Medications and Allergies Home Medications Medication Instructions Recorded Confirmed Type Albuterol Inhaler [Ventolin Hfa 2 puff INHALATION RT-Q6H PRN 06/16/16 04/29/17 History Inhaler] Ibuprofen [Motrin] 800 mg PO TID PRN 03/15/17 04/29/17 History Lisinopril [Zestril] 20 mg PO DAILY 03/15/17 04/29/17 History Sertraline [Zoloft] 50 mg PO HS 03/15/17 04/29/17 History Atenolol [Tenormin] 25 mg PO DAILY 04/16/17 04/29/17 History oxyCODONE-APAP 10-325MG [Percocet 1 tab PO TID PRN 04/16/17 04/29/17 History 10-325 mg] Allergies Allergy/AdvReac Type Severity Reaction Status Date / Time morphine Allergy Anaphylaxis Verified 04/29/17 10:51 Physical Exam Vitals: Vital Signs Temp Pulse Resp BP Pulse Ox 04/29/17 12:48 73 18 103/60 98 04/29/17 11:42 65 18 103/61 98 04/29/17 10:36 97.1 F L 82 18 130/56 97 Intake and Output 04/29/17 04/29/17 04/29/17 06:59 14:59 22:59 Other: Weight 63.957 kg Patient Weight 04/30/17 06:59 Weight 63.957 kg PHYSICAL EXAMINATION: GENERAL: The patient is alert and oriented x3, not in any acute distress. Well developed, well nourished. HEENT: Pupils are round and equally reacting to light. EOMI. No scleral icterus. No conjunctival pallor. Normocephalic, atraumatic. No pharyngeal erythema. No thyromegaly. CARDIOVASCULAR: S1 and S2 present. No murmurs, rubs, or gallops. PULMONARY: Chest is clear to auscultation, no wheezing or crackles. ABDOMEN: Soft, nontender, nondistended, normoactive bowel sounds. No palpable organomegaly. MUSCULOSKELETAL: No joint swelling or deformity. EXTREMITIES: No cyanosis, clubbing, or pedal edema. NEUROLOGICAL: Gross neurological examination did not reveal any focal deficits. SKIN: No rashes. Results CBC & Chem 7: 04/29/17 10:47 04/29/17 10:47 Labs: Abnormal Lab Results - Last 24 Hours (Table) 04/29/17 04/29/17 04/29/17 Range/Units 10:47 10:47 12:46 Chloride 110 H (98-107) mmol/L Carbon Dioxide 19 L (22-30) mmol/L BUN 27 H (9-20) mg/dL Total Creatine Kinase 176 H (55-170) U/L Urine Cocaine Screen Detected H (NotDetected) Assessment and Plan Plan: #1 chest pain: We'll rule out acute coronary syndromes and unstable angina, cardiology evaluation tomorrow morning. Cocaine use may have contributed to his chest pain. Atenolol will be discontinued #2 tobacco abuse: Counseling was provided #3 hypertension patient will be continued on his lisinopril. #4 depression continue with Zoloft
[2017-04-29 17:23] LABS: Creatine Kinase 134 U/L (55-170)
[2017-04-29 17:36] LABS: Creatine Kinase MB 1.9 ng/mL (0.0-2.4); Troponin I <0.012 ng/mL (0.000-0.034)
[2017-04-29 17:57] VITALS: BMI 24.2
[2017-04-29] MEDS: NITROGLYCERIN OINT 1 INCH/GM PACKET TOPICAL SCH ×2 (18:16→23:44)
[2017-04-29] MEDS: oxyCODONE-APAP 10-325MG 1 EACH TAB PO PRN (20:19)
[2017-04-29] MEDS: NICOTINE 21MG/24HR PATCH TRANSDERM SCH (20:19)
[2017-04-29] MEDS ORDERED: SERTRALINE 50 MG TAB PO SCH (21:00)
[2017-04-29 21:48] VITALS: RESP 18
[2017-04-29 23:19] LABS: Creatine Kinase 121 U/L (55-170)
[2017-04-29 23:32] LABS: Creatine Kinase MB 1.8 ng/mL (0.0-2.4); Troponin I <0.012 ng/mL (0.000-0.034)
[2017-04-30] MEDS: oxyCODONE-APAP 10-325MG 1 EACH TAB PO PRN ×2 (03:00→09:26)
[2017-04-30 03:32] LABS: Cholesterol 130 mg/dL (<200); HDL Cholesterol 66 mg/dL (40-60)
[2017-04-30] MEDS: NITROGLYCERIN OINT 1 INCH/GM PACKET TOPICAL SCH (05:20)
[2017-04-30] MEDS ORDERED: LISINOPRIL 20 MG TAB PO SCH (09:00)
[2017-04-30] MEDS ORDERED: ATENOLOL 25 MG TAB PO SCH (09:00)
[2017-04-30] MEDS ORDERED: ASPIRIN 325 MG TAB PO SCH (09:00)
[2017-04-30] MEDS: NICOTINE 21MG/24HR PATCH TRANSDERM SCH (09:26)
--- NOTE | 2017-04-30 10:16 | CONS ---
CONSULTATION Mr. Ryan is a 46-year-old male with a history of hypertension, chronic tobacco use, who follows on a regular basis at the [facility]. He presented yesterday with symptoms of chest discomfort that persisted. The patient was working in his shop. He is usually very active physically, bikes on a regular basis. Has some dyspnea on exertion but no chest discomfort. No dizziness, palpitation, or syncope. No PND, orthopnea, or peripheral edema. He has no prior documented history of coronary artery disease. His social history is remarkable for history of alcohol intake. He drank quite a bit over the last few days and use of cocaine. He smokes on a daily basis. MEDICATION: His medications at home include: 1. Sertraline. 2. Percocet. 3. Zestril 20 mg daily. 4. Ibuprofen. 5. Tenormin 25 mg daily. 6. Ventolin. REVIEW OF SYSTEMS: Respiratory system: He has a history of asthma. History of dyspnea. GI system: No recent GI bleed. No peptic ulcer disease. system: No dysuria or hematuria. Nervous system: No stroke or seizure. PHYSICAL EXAMINATION: He is a 46-year-old male, alert, oriented, in no apparent distress. Blood pressure 136/79 with a heart in 60s. HEAD: Normocephalic. Eyes sclerae anicteric. Neck good upstroke. No bruit, no jugular venous distention. LUNGS: Clear to auscultation. HEART: Regular rhythm S1, S2. No S3, no S4. No murmur, rub. ABDOMEN: Soft, nontender. Positive bowel sounds. No megaly. EXTREMITIES: No edema. Intact distal pulses. LAB DATA: EKG is sinus mechanism, rate 57, normal axis and intervals. No acute changes. Troponin less than 0.012 for 3 samples. Cholesterol 130, LDL of 56, BUN and creatinine 27 and 0.86, potassium 4.0. Toxicology revealed cocaine positive. Hemoglobin of 15.8. Chest x-ray shows no acute infiltrate. IMPRESSION: 1. Episode of chest discomfort of unclear etiology. No clear evidence to suggest acute coronary syndrome. 2. Event could be related to cocaine intake or the alcohol. 3. History of chronic tobacco use. 4. History of chronic alcohol intake. 5. Drug user. 6. Hypertension. RECOMMENDATION: From the cardiac standpoint, I will stop his heparin, increase his level of activity. I will obtain echocardiogram with Doppler. If there is no evidence of any significant abnormality, I would expect he should be able to be discharged home and obtain a stress echocardiogram as an outpatient. Thank you for this consult. We will follow with you. MARY ANNE / ION: [id number] /
[2017-04-30 11:49] VITALS: BP 155/77; PULSE 72; TEMP 97.5
--- NOTE | 2017-04-30 12:28 | P.DS ---
Providers Date of admission: 04/29/17 12:56 Attending physician: Deni Martinez Consults: 04/29/17 12:56 Consult Physician Urgent Consulting Provider: [facility] Consult Reason/Comments: Unstable angina Do you want consulting provider notified?: Yes Primary care physician: Fartun Garrido [facility] Course: She was admitted for chest pain rule out acute coronary syndromes patient chest pain is secondary to probable cocaine use and patient is cleared for discharge from cardiology perspective. Extensive counseling regarding cocaine abuse was provided and counseling regarding cocaine and beta susan together puts him at higher risk for myocardial infarction. Patient will be discharged today PHYSICAL EXAMINATION: GENERAL: The patient is alert and oriented x3, not in any acute distress. Well developed, well nourished. HEENT: Pupils are round and equally reacting to light. EOMI. No scleral icterus. No conjunctival pallor. Normocephalic, atraumatic. No pharyngeal erythema. No thyromegaly. CARDIOVASCULAR: S1 and S2 present. No murmurs, rubs, or gallops. PULMONARY: Chest is clear to auscultation, no wheezing or crackles. ABDOMEN: Soft, nontender, nondistended, normoactive bowel sounds. No palpable organomegaly. MUSCULOSKELETAL: No joint swelling or deformity. EXTREMITIES: No cyanosis, clubbing, or pedal edema. NEUROLOGICAL: Gross neurological examination did not reveal any focal deficits. SKIN: No rashes. #1 chest pain: #2 tobacco abuse: Counseling was provided #3 hypertension patient will be continued on his lisinopril. #4 depression continue with Zoloft Plan - Discharge Summary New Discharge Prescriptions: No Action Albuterol Inhaler [Ventolin Hfa Inhaler] 2 puff INHALATION RT-Q6H PRN PRN Reason: Shortness Of Breath Ibuprofen [Motrin] 800 mg PO TID PRN PRN Reason: Pain Sertraline [Zoloft] 50 mg PO HS Lisinopril [Zestril] 20 mg PO DAILY oxyCODONE-APAP 10-325MG [Percocet 10-325 mg] 1 tab PO TID PRN PRN Reason: Pain Discharge Medication List Albuterol Inhaler [Ventolin Hfa Inhaler] 2 puff INHALATION RT-Q6H PRN 06/16/16 [ History] Ibuprofen [Motrin] 800 mg PO TID PRN 03/15/17 [History] Lisinopril [Zestril] 20 mg PO DAILY 03/15/17 [History] Sertraline [Zoloft] 50 mg PO HS 03/15/17 [History] oxyCODONE-APAP 10-325MG [Percocet 10-325 mg] 1 tab PO TID PRN 04/16/17 [History] Follow up Appointment(s)/Referral(s): Marie Caldera MD [STAFF PHYSICIAN] - 1 Week (Please call the office on Tuesday as Dr. Caldera has recommended a stress test as an outpatient.) Fartun Garrido MD [Primary Care Provider] - 3 Days Patient Instructions/Handouts: Chest Pain (GEN) Discharge Disposition: HOME SELF-CARE
--- NOTE | 2017-04-30 14:32 | ECHOF ---
Referral Reason: MEASUREMENTS -------- HEIGHT: 162.6 cm WEIGHT: 64.0 kg BP: 120/ RVIDd: 2.7 cm (< 3.3) IVSd: 1.2 cm (0.6 - 1.1) LVIDd: 4.2 cm (3.9 - 5.3) LVPWd: 1.2 cm (0.6 - 1.1) IVSs: 1.3 cm LVIDs: 3.0 cm LVPWs: 1.6 cm LA Diam: 2.9 cm (2.7 - 3.8) Ao Diam: 3.0 cm (2.0 - 3.7) AV Cusp: 1.7 cm (1.5 - 2.6) LA Diam: 3.4 cm (2.7 - 3.8) MV EXCURSION: 15.098 mm (> 18.000) MV EF SLOPE: 97 mm/s (70 - 150) EPSS: 0.3 cm MV E Aaron: 0.83 m/s MV DecT: 137 ms MV A Aaron: 0.53 m/s MV E/A Ratio: 1.55 RAP: 5.00 mmHg RVSP: 12.42 mmHg FINDINGS -------- Sinus rhythm. This was a technically good study. The left ventricular size is normal. Left ventricular wall thickness is normal. Overall left ventricular systolic function is normal with, an EF between 55 - 60 %. The right ventricle is normal in size. The left atrial size is normal. The right atrial size is normal. The aortic valve is trileaflet, and appears structurally normal. No aortic stenosis or regurgitation. The mitral valve is normal. Mild mitral regurgitation is present. Mild tricuspid regurgitation present. There is no evidence of pulmonary hypertension. The right ventricular systolic pressure, as measured by Doppler, is 12.42mmHg. There is no pulmonic regurgitation present. The aortic root size is normal. There is no pericardial effusion. CONCLUSIONS -------- 1. Sinus rhythm. 2. The aortic root size is normal. 3. There is no pericardial effusion. 4. Left ventricular wall thickness is normal. 5. Overall left ventricular systolic function is normal with, an EF between 55 - 60 %. 6. The left atrial size is normal. 7. The aortic valve is trileaflet, and appears structurally normal. No aortic stenosis or regurgitation. 8. Mild mitral regurgitation is present. 9. Mild tricuspid regurgitation present. 10. There is no evidence of pulmonary hypertension. 11. There is no pulmonic regurgitation present. SKIDDER DRIVER: Elyssa Dumont RDCS
[2017-05-01] MEDS ORDERED: ASPIRIN 81 MG PO SCH (09:00)
== END 2017-04-30 12:08 | disposition home or self-care (01) ==
LOC: EC 10:35 → 3OBS 12:56
PROVIDERS: ADMIT Hospitalist; ATTEND Hospitalist
DX: R07.89 Other chest pain (principal); I10 Essential (primary) hypertension; F17.200 Nicotine dependence, unspecified, uncomplicated; F14.10 Cocaine abuse, uncomplicated; F31.9 Bipolar disorder, unspecified; Z82.49 Family history of ischemic heart disease and other diseases of the circulatory system; R61 Generalized hyperhidrosis; R11.0 Nausea; J45.909 Unspecified asthma, uncomplicated; M54.9 Dorsalgia, unspecified; Z79.899 Other long term (current) drug therapy; Z88.5 Allergy status to narcotic agent; Z83.3 Family history of diabetes mellitus
CPT/HCPCS: 99291; 96365 ×2; 96376 ×2; 96366 ×2; 36415; 94640; 93005; 93306; 80061; 80053; 82550; 82553; 83735; 84484; 85025; 85610; 85730 ×2; 80306; 71020; G0378 ×2; S4990 ×2; J1644 ×2

== ENCOUNTER 2017-05-02 07:18 | Emergency (ER) | payer OTHER ==
[2017-05-02 07:24] VITALS: RESP 18; TEMP 97.6
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
[2017-05-02 09:58] VITALS: BP 130/80; PULSE 68
== END 2017-05-02 09:55 | disposition home or self-care (01) ==
LOC: EC 07:18
DX: S39.012A Strain of muscle, fascia and tendon of lower back, initial encounter (principal); M54.30 Sciatica, unspecified side; R40.2412 Glasgow coma scale score 13-15, at arrival to emergency department; I10 Essential (primary) hypertension; F32.9 Major depressive disorder, single episode, unspecified; F17.200 Nicotine dependence, unspecified, uncomplicated; Z79.899 Other long term (current) drug therapy; Z88.5 Allergy status to narcotic agent; V13.4XXA Pedal cycle driver injured in collision with car, pick-up truck or van in traffic accident, initial encounter; Y92.410 Unspecified street and highway as the place of occurrence of the external cause; Y93.55 Activity, bike riding
CPT/HCPCS: 72131; 72192; 99284

== ENCOUNTER 2017-05-07 10:21 | Emergency (ER) | payer OTHER ==
[2017-05-07] MEDS ORDERED: SODIUM CHLORIDE 0.9% 1,000 ML IV STA (10:29)
[2017-05-07 10:31] VITALS: RESP 16
--- NOTE | 2017-05-07 10:32 | ED ---
General Adult HPI - General Stated complaint: Tremors Time Seen by Provider: 05/07/17 10:27 Source: patient, RN notes reviewed Limitations: no limitations - History of Present Illness Initial comments: Patient is a pleasant 46-year-old male presenting to the emergency Department with tremors. Patient states he received an injection of Abilify yesterday. Patient attributes his tremors to this. Patient states he has not had this medication previously. Patient states he received for his bipolar. Patient does admit to feeling somewhat anxious. - Related Data Home Medications Medication Instructions Recorded Confirmed Albuterol Inhaler [Ventolin Hfa 2 puff INHALATION RT-Q6H PRN 06/16/16 05/02/17 Inhaler] Ibuprofen [Motrin] 800 mg PO TID PRN 03/15/17 05/02/17 Lisinopril [Zestril] 20 mg PO DAILY 03/15/17 05/02/17 Sertraline [Zoloft] 50 mg PO HS 03/15/17 05/02/17 oxyCODONE-APAP 10-325MG [Percocet 1 tab PO TID PRN 04/16/17 05/02/17 10-325 mg] Previous Rx's Medication Instructions Recorded Cyclobenzaprine [Flexeril] 10 mg PO TID #14 tab 05/02/17 Ibuprofen 800 mg PO Q6HR PRN #20 tablet 05/02/17 predniSONE 20 mg PO BID #10 tab 05/02/17 Allergies Allergy/AdvReac Type Severity Reaction Status Date / Time morphine Allergy Anaphylaxis Verified 05/07/17 12:49 Review of Systems ROS Statement: Those systems with pertinent positive or pertinent negative responses have been documented in the HPI. ROS Other: All systems not noted in ROS Statement are negative. Constitutional: Denies: fever Eyes: Denies: eye pain ENT: Denies: ear pain Respiratory: Denies: cough Cardiovascular: Denies: chest pain Endocrine: Denies: fatigue Gastrointestinal: Denies: abdominal pain Genitourinary: Denies: dysuria Musculoskeletal: Denies: back pain Skin: Denies: rash Neurological: Denies: headache Psychiatric: Reports: anxiety Past Medical History Past Medical History: Asthma, Hypertension, Mitral Valve Prolapse (MVP) Additional Past Medical History / Comment(s): migraines, back pain History of Any Multi-Drug Resistant Organisms: None Reported Past Surgical History: Appendectomy, Tonsillectomy Additional Past Surgical History / Comment(s): vasectomy Past Anesthesia/Blood Transfusion Reactions: No Reported Reaction Past Psychological History: Bipolar, Depression Smoking Status: Current every day smoker Past Alcohol Use History: Occasional Past Drug Use History: Cocaine - Past Family History Mother Family Medical History: Diabetes Mellitus General Exam Limitations: no limitations General appearance: alert, in no apparent distress Head exam: Present: atraumatic Eye exam: Present: normal appearance, PERRL, EOMI. Absent: nystagmus ENT exam: Present: normal oropharynx Neck exam: Present: normal inspection Respiratory exam: Present: normal lung sounds bilaterally Cardiovascular Exam: Present: regular rate, normal rhythm GI/Abdominal exam: Present: soft. Absent: tenderness Extremities exam: Present: normal inspection Neurological exam: Present: alert, oriented X3, CN II-XII intact. Absent: motor sensory deficit Expanded Speech: Present: fluid speech Cranial nerves: EOM's Intact: Normal Motor strength exam: RUE: 5, LUE: 5, RLE: 5, LLE: 5 Eye Response: (4) open spontaneously Motor Response: (6) obeys commands Verbal Response: (5) oriented Psychiatric exam: Present: normal affect, normal mood Skin exam: Present: normal color Course Vital Signs 05/07/17 10:28 Temperature 98 F Pulse Rate 70 Respiratory 16 Rate Blood Pressure 140/84 O2 Sat by Pulse 98 Oximetry - Reevaluation(s) Reevaluation #1: 05/07/17 10:31 Patient did fall asleep following history and physical and tremors resolved. Medical Decision Making - Medical Decision Making Patient reexamined and resting comfortably in bed. Patient symptom-free at this time. Patient updated on results and need for follow-up. Patient is advised specifically to follow-up with the psychiatrist prior to his next injection of Abilify. - Lab Data Result diagrams: 05/07/17 10:40 05/07/17 10:40 Lab Results 05/07/17 05/07/17 Range/Units 10:40 10:40 WBC 8.8 (3.8-10.6) k/uL RBC 4.72 (4.30-5.90) m/uL Hgb 15.0 (13.0-17.5) gm/dL Hct 44.1 (39.0-53.0) % MCV 93.4 (80.0-100.0) fL MCH 31.8 (25.0-35.0) pg MCHC 34.1 (31.0-37.0) g/dL RDW 12.2 (11.5-15.5) % Plt Count 245 (150-450) k/uL Neutrophils % 68 % Lymphocytes % 24 % Monocytes % 5 % Eosinophils % 1 % Basophils % 0 % Neutrophils # 6.0 (1.3-7.7) k/uL Lymphocytes # 2.1 (1.0-4.8) k/uL Monocytes # 0.5 (0-1.0) k/uL Eosinophils # 0.1 (0-0.7) k/uL Basophils # 0.0 (0-0.2) k/uL Sodium 140 (137-145) mmol/L Potassium 4.1 (3.5-5.1) mmol/L Chloride 109 H (98-107) mmol/L Carbon Dioxide 23 (22-30) mmol/L Anion Gap 8 mmol/L BUN 22 H (9-20) mg/dL Creatinine 0.98 (0.66-1.25) mg/dL Est GFR (MDRD) Af Amer >60 (>60 ml/min/1.73 sqM) Est GFR (MDRD) Non-Af >60 (>60 ml/min/1.73 sqM) Glucose 127 H (74-99) mg/dL Calcium 8.9 (8.4-10.2) mg/dL Magnesium 1.9 (1.6-2.3) mg/dL Total Bilirubin 0.3 (0.2-1.3) mg/dL AST 27 (17-59) U/L ALT 45 (21-72) U/L Alkaline Phosphatase 53 (38-126) U/L Total Protein 5.7 L (6.3-8.2) g/dL Albumin 3.4 L (3.5-5.0) g/dL Disposition Clinical Impression: Tremor Disposition: HOME SELF-CARE Condition: Stable Instructions: Tremors (ED) Additional Instructions: Please follow-up with primary care physician in the next day or 2 for recheck. Please also follow-up psychiatrist in the next day or 2, especially prior to next Abilify injection. Return for increased tremors, confusion, weakness, worsening symptoms or other concerns. Referrals: Fartun Garrido MD [Primary Care Provider] - 1-2 days Time of Disposition: 13:13
[2017-05-07 11:06] LABS: ALT 45 U/L (21-72); AST 27 U/L (17-59); Alkaline Phosphatase 53 U/L (38-126); Anion Gap 8 mmol/L; Blood Urea Nitrogen 22 mg/dL (9-20); Calcium 8.9 mg/dL (8.4-10.2); Carbon Dioxide 23 mmol/L (22-30); Chloride 109 mmol/L (98-107); Glucose 127 mg/dL (74-99); Magnesium 1.9 mg/dL (1.6-2.3); Non-African American GFR(MDRD) >60 (>60 ml/min/1.73 sqM); Potassium 4.1 mmol/L (3.5-5.1); Sodium 140 mmol/L (137-145); Total Bilirubin 0.3 mg/dL (0.2-1.3); Total Protein 5.7 g/dL (6.3-8.2)
[2017-05-07 11:07] LABS: Basophils % (A) 0 %; CH 33.1; CHCM 35.6; Eosinophils # (A) 0.1 k/uL (0-0.7); Eosinophils % (A) 1 %; HCT 44.1 % (39.0-53.0); HDW 2.57; Luc # (Auto) 0.11; Luc % (Auto) 1; Lymphocytes # (A) 2.1 k/uL (1.0-4.8); Lymphocytes % (A) 24 %; MCH 31.8 pg (25.0-35.0); MCHC 34.1 g/dL (31.0-37.0); MCV 93.4 fL (80.0-100.0); Mean Platelet Volume 6.9; Monocytes # (A) 0.5 k/uL (0-1.0); Monocytes % (A) 5 %; Neutrophils % (A) 68 %; RBC 4.72 m/uL (4.30-5.90); RDW 12.2 % (11.5-15.5); WBC 8.8 k/uL (3.8-10.6); WBC (Perox) 8.72
[2017-05-07 13:24] VITALS: BP 134/89; PULSE 60; TEMP 97.6
== END 2017-05-07 13:23 | disposition home or self-care (01) ==
LOC: EC 10:21
DX: R25.1 Tremor, unspecified (principal); I10 Essential (primary) hypertension; F31.9 Bipolar disorder, unspecified; F17.200 Nicotine dependence, unspecified, uncomplicated; Z88.5 Allergy status to narcotic agent; Z79.899 Other long term (current) drug therapy
CPT/HCPCS: 36415; 80053; 83735; 85025; 96360; 96361; 99284

== ENCOUNTER 2017-07-26 15:02 | Emergency (ER) | payer OTHER ==
--- NOTE | 2017-07-26 15:23 | ED ---
General Adult HPI - General Chief complaint: Psychiatric Symptoms Stated complaint: back pain Time Seen by Provider: 07/26/17 15:19 Source: patient Mode of arrival: ambulatory Limitations: no limitations - History of Present Illness Initial comments: Cuong is a 46-year-old male who presents to emergency department today for evaluation of suicidal thoughts. Mr. Ryan reports that he was released from incarceration on June 26, he states that since discharge he has been staying with his girlfriend. He states that approximately 2 weeks after being released from incarceration he began experiencing depressive thoughts and thoughts of suicide. He states that the past couple of days he has been fighting with his girlfriend and has not been staying in her home. He states that this has intensified his thoughts and he is having thoughts of suicide. Patient states that he worries he has a danger to himself and that he will complete suicide therefore he came to the emergency department for evaluation. In addition patient reports that he had a slip and fall on the ice yesterday and is experiencing right lower back pain. He reports he's had a normal gait is able to walk without difficulty. He denies any change in bowel or bladder habits. He has not taken anything for this pain. - Related Data Home Medications Medication Instructions Recorded Confirmed Albuterol Inhaler [Ventolin Hfa 2 puff INHALATION RT-Q6H PRN 06/16/16 07/26/17 Inhaler] Ibuprofen [Motrin] 800 mg PO TID PRN 03/15/17 07/26/17 Lisinopril [Zestril] 20 mg PO DAILY 03/15/17 07/26/17 oxyCODONE-APAP 10-325MG [Percocet 1 tab PO TID PRN 04/16/17 07/26/17 10-325 mg] Atenolol [Tenormin] 25 mg PO DAILY 05/07/17 07/26/17 ARIPiprazole [Abilify Maintena] 300 mg IM Q28D 07/26/17 07/26/17 Benztropine Mesylate [Cogentin] 2 mg PO BID 07/26/17 07/26/17 Ergocalciferol (Vitamin D2) 50,000 unit PO Q7D 07/26/17 07/26/17 [Vitamin D2] Allergies Allergy/AdvReac Type Severity Reaction Status Date / Time morphine Allergy Anaphylaxis Verified 07/26/17 15:51 Review of Systems ROS Statement: Those systems with pertinent positive or pertinent negative responses have been documented in the HPI. ROS Other: All systems not noted in ROS Statement are negative. Constitutional: Denies: fever, chills Eyes: Denies: eye pain ENT: Denies: throat pain Respiratory: Denies: cough, dyspnea Cardiovascular: Denies: chest pain, palpitations Endocrine: Denies: fatigue Gastrointestinal: Denies: nausea, vomiting Genitourinary: Denies: urgency, dysuria, frequency Musculoskeletal: Reports: back pain Skin: Denies: rash, lesions Neurological: Denies: headache Psychiatric: Reports: anxiety, depression, suicidal thoughts Hematological/Lymphatic: Denies: easy bleeding, easy bruising Past Medical History Past Medical History: Asthma, Hypertension, Mitral Valve Prolapse (MVP) Additional Past Medical History / Comment(s): migraines, back pain History of Any Multi-Drug Resistant Organisms: None Reported Past Surgical History: Appendectomy, Tonsillectomy Additional Past Surgical History / Comment(s): vasectomy Past Anesthesia/Blood Transfusion Reactions: No Reported Reaction Past Psychological History: Bipolar, Depression Smoking Status: Current every day smoker Past Alcohol Use History: Occasional Past Drug Use History: Cocaine - Past Family History Mother Family Medical History: Diabetes Mellitus General Exam Limitations: no limitations Course Vital Signs 07/26/17 15:12 Temperature 97.3 F L Pulse Rate 99 Respiratory 18 Rate Blood Pressure 148/87 O2 Sat by Pulse 99 Oximetry Medical Decision Making - Medical Decision Making Patient was seen and evaluated, history was obtained from the patient Sitter at bedside Patient is actively suicidal and addition he has musculoskeletal low back pain with no neurologic involvement Medications ordered for back pain Labs ordered for medical clearance Patient was evaluated by mental health who arranged for transfer to an outside psychiatric facility Patient is medically cleared for transfer to a psychiatric facility - Lab Data Result diagrams: 07/26/17 19:53 07/26/17 19:53 Lab Results 07/26/17 07/26/17 07/26/17 Range/Units 16:00 19:53 19:53 WBC 12.7 H (3.8-10.6) k/uL RBC 5.04 (4.30-5.90) m/uL Hgb 16.3 (13.0-17.5) gm/dL Hct 47.5 (39.0-53.0) % MCV 94.2 (80.0-100.0) fL MCH 32.3 (25.0-35.0) pg MCHC 34.3 (31.0-37.0) g/dL RDW 13.6 (11.5-15.5) % Plt Count 388 (150-450) k/uL Neutrophils % 70 % Lymphocytes % 23 % Monocytes % 4 % Eosinophils % 2 % Basophils % 0 % Neutrophils # 8.9 H (1.3-7.7) k/uL Lymphocytes # 2.9 (1.0-4.8) k/uL Monocytes # 0.5 (0-1.0) k/uL Eosinophils # 0.2 (0-0.7) k/uL Basophils # 0.0 (0-0.2) k/uL Sodium 139 (137-145) mmol/L Potassium 4.2 (3.5-5.1) mmol/L Chloride 101 (98-107) mmol/L Carbon Dioxide 28 (22-30) mmol/L Anion Gap 10 mmol/L BUN 18 (9-20) mg/dL Creatinine 1.15 (0.66-1.25) mg/dL Est GFR (MDRD) Af Amer >60 (>60 ml/min/1.73 sqM) Est GFR (MDRD) Non-Af >60 (>60 ml/min/1.73 sqM) Glucose 126 H (74-99) mg/dL Calcium 10.1 (8.4-10.2) mg/dL Total Bilirubin 0.5 (0.2-1.3) mg/dL AST 21 (17-59) U/L ALT 46 (21-72) U/L Alkaline Phosphatase 58 (38-126) U/L Total Protein 6.5 (6.3-8.2) g/dL Albumin 3.8 (3.5-5.0) g/dL Urine Opiates Screen Not Detected (NotDetected) Ur Oxycodone Screen Not Detected (NotDetected) Urine Methadone Screen Not Detected (NotDetected) Ur Propoxyphene Screen Not Detected (NotDetected) Ur Barbiturates Screen Not Detected (NotDetected) U Tricyclic Antidepress Not Detected (NotDetected) Ur Phencyclidine Scrn Not Detected (NotDetected) Ur Amphetamines Screen Not Detected (NotDetected) U Methamphetamines Scrn Not Detected (NotDetected) U Benzodiazepines Scrn Not Detected (NotDetected) Urine Cocaine Screen Detected H (NotDetected) U Marijuana (THC) Screen Not Detected (NotDetected) Disposition Clinical Impression: Suicidal ideation, Depression Disposition: TRANSFER TO PSYCH HOSP/UNIT Condition: Good Referrals: Fartun Garrido MD [Primary Care Provider] - 1-2 days Time of Disposition: 20:27 - Out of Hospital Transfer - Req. Specs Out of Hospital Transfer - Requested Specifics: Psychiatric Non-ICU
[2017-07-26] MEDS ORDERED: DIAZEPAM 5 MG TAB PO STA (15:33)
[2017-07-26] MEDS: LIDOCAINE 5% PATCH TOPICAL SCH (16:27)
[2017-07-26 16:35] LABS: Amphetamine Screen,Urine Not Detected (NotDetected); Barbiturate Screen,Urine Not Detected (NotDetected); Benzodiazepines Screen,Urine Not Detected (NotDetected); Cocaine Screen,Urine Detected (NotDetected); Methadone Screen, Urine Not Detected (NotDetected); Opiate Screen,Urine Not Detected (NotDetected); Oxycodone Screen, Urine Not Detected (NotDetected); Phencyclidine Screen,Urine Not Detected (NotDetected); Tricyclic Antidepressant,Urine Not Detected (NotDetected); Urn Cannabinoid Scrn Not Detected (NotDetected)
[2017-07-26 20:01] LABS: Basophils % (A) 0 %; Eosinophils # (A) 0.2 k/uL (0-0.7); Eosinophils % (A) 2 %; HCT 47.5 % (39.0-53.0); HGB 16.3 gm/dL (13.0-17.5); Lymphocytes # (A) 2.9 k/uL (1.0-4.8); Lymphocytes % (A) 23 %; MCH 32.3 pg (25.0-35.0); MCHC 34.3 g/dL (31.0-37.0); MCV 94.2 fL (80.0-100.0); Mean Platelet Volume 6.6; Monocytes # (A) 0.5 k/uL (0-1.0); Monocytes % (A) 4 %; Neutrophils # (A) 8.9 k/uL (1.3-7.7); Neutrophils % (A) 70 %; Platelet Count 388 k/uL (150-450); RBC 5.04 m/uL (4.30-5.90); RDW 13.6 % (11.5-15.5); WBC 12.7 k/uL (3.8-10.6)
[2017-07-26 20:12] LABS: ALT 46 U/L (21-72); AST 21 U/L (17-59); Albumin 3.8 g/dL (3.5-5.0); Alkaline Phosphatase 58 U/L (38-126); Anion Gap 10 mmol/L; Blood Urea Nitrogen 18 mg/dL (9-20); Calcium 10.1 mg/dL (8.4-10.2); Carbon Dioxide 28 mmol/L (22-30); Chloride 101 mmol/L (98-107); Glucose 126 mg/dL (74-99); Potassium 4.2 mmol/L (3.5-5.1); Sodium 139 mmol/L (137-145); Total Bilirubin 0.5 mg/dL (0.2-1.3); Total Protein 6.5 g/dL (6.3-8.2)
[2017-07-27] MEDS ORDERED: LIDOCAINE 5% PATCH TOPICAL SCH (09:00)
[2017-07-27] MEDS: LIDOCAINE 5% PATCH TOPICAL SCH (12:24)
[2017-07-27 23:07] VITALS: BP 132/71; PULSE 78; RESP 18; TEMP 97
--- NOTE | 2017-08-22 14:08 | CDI ---
Outpt Documentation Clarification Form Dr. Cope, Please provide details of physical examination for this patient on 07/27/17 in the ER. The ED physician documentation template includes lundberg for you to document the findings of your physical examination of ER patients. Please remember to complete it prior to signing off on the ER documentation. Macie Epps Supervisor [employer] [facility]
== END 2017-07-27 12:52 ==
LOC: EC 15:02
DX: F31.9 Bipolar disorder, unspecified (principal); R45.851 Suicidal ideations; M54.5 Low back pain; I10 Essential (primary) hypertension; F17.200 Nicotine dependence, unspecified, uncomplicated; Z88.5 Allergy status to narcotic agent; Z79.899 Other long term (current) drug therapy; W00.0XXA Fall on same level due to ice and snow, initial encounter
CPT/HCPCS: 36415; 80053; 80306; 82075; 85025; 99285